=== PATIENT | male | born 1970 | race Caucasian/White ===

== ENCOUNTER 2018-12-25 12:02 | Emergency (ER) | payer OTHER ==
[~2018-12-25] VITALS: Ht 177.8 cm; Wt 104.3 kg
[2018-12-25 12:45] LABS: ABSOLUTE BASOPHILS 0.1 thou/uL (0.0-0.2); ABSOLUTE EOSINOPHILS 0.1 thou/uL (0.0-0.7); ABSOLUTE LYMPHOCYTES 2.9 thou/uL (0.8-5.3); ABSOLUTE MONOCYTES 0.8 thou/uL (0.0-1.2); ABSOLUTE NEUTROPHILS 6.2 thou/uL (1.6-8.1); BASOPHILS 1.2 %; EOSINOPHILS 1.5 %; HEMOGLOBIN 15.9 gm/dL (14.0-18.0); LYMPHOCYTES 28.6 %; MCH 32.9 pg (26.0-34.0); MCHC 34.6 g/dL (28.0-37.0); MCV 95.1 fL (80.0-100.0); MONOCYTES 7.4 %; MPV 8.8 fl. (7.2-11.1); NUCLEATED RBCS 0 /100WBC; PLATELET COUNT* 161 thou/uL (150-400); POLYS 61.3 %; RBC 4.83 mil/uL (4.50-6.00); RDW-CV 13.3 % (10.5-14.5); WBC 10.1 thou/uL (4.0-11.0)
[2018-12-25 12:57] LABS: CREATININE 1.2 mg/dL (0.6-1.3); POTASSIUM 4.1 mmol/L (3.5-5.1); TOTAL BILIRUBIN 0.3 mg/dL (<0.1-1.0); TOTAL PROTEIN 8.1 g/dL (6.4-8.2)
[2018-12-25] MEDS ORDERED: KEFLEX500 M1 PO (14:13)
[2018-12-25] MEDS ORDERED: IBUPROFEN 800800 M1 PO (14:13)
[2018-12-25] MEDS ORDERED: NORCO 5-325 TA1 EACH PO (14:13)
[2018-12-25 14:30] VITALS: BP 155/88
== END 2018-12-25 14:31 | disposition home or self-care (01) ==
LOC: M.ERS 12:02
PROVIDERS: Physician Assistant
DX: M25.572 Pain in left ankle and joints of left foot (principal); I10 Essential (primary) hypertension; M10.9 Gout, unspecified; F17.200 Nicotine dependence, unspecified, uncomplicated

== ENCOUNTER 2019-03-25 11:50 | Emergency (ER) | payer BC ==
[~2019-03-25] VITALS: Ht 177.8 cm; Wt 102.1 kg
[~2019-03-25 11:50] MED LIST: IBUPROFEN 800800 M1 PO; KEFLEX500 M1 PO; NORCO 5-325 TA1 EACH PO
[2019-03-25] MEDS ORDERED: CARAFATE 1 GM TA1 G1 PO (11:56)
[2019-03-25] MEDS ORDERED: LISINOPRIL10 MG PO (11:56)
[2019-03-25] MEDS ORDERED: LIPITOR 20 MG T20 M1 PO (11:57)
[2019-03-25] MEDS ORDERED: NAPROSYN500 MG PO (13:21)
[2019-03-25] MEDS ORDERED: FLEXERIL PO (13:21)
[2019-03-25 13:33] VITALS: BP 155/99
== END 2019-03-25 13:31 | disposition home or self-care (01) ==
LOC: M.ERS 11:50
DX: S39.012A Strain of muscle, fascia and tendon of lower back, initial encounter (principal); S29.012A Strain of muscle and tendon of back wall of thorax, initial encounter; F17.200 Nicotine dependence, unspecified, uncomplicated; I10 Essential (primary) hypertension; M10.9 Gout, unspecified; X50.1XXA Overexertion from prolonged static or awkward postures, initial encounter; Y92.89 Other specified places as the place of occurrence of the external cause; Y93.89 Activity, other specified; Y99.8 Other external cause status

== ENCOUNTER 2019-06-21 19:55 | Emergency (ER) | payer BC ==
[~2019-06-21] VITALS: Ht 177.8 cm; Wt 99.8 kg
[~2019-06-21 19:55] MED LIST changes: +CARAFATE 1 GM TA1 G1 PO; +FLEXERIL PO; +LIPITOR 20 MG T20 M1 PO; +LISINOPRIL10 MG PO; +NAPROSYN500 MG PO
[2019-06-21] MEDS ORDERED: NORCO 5-325 TA1 EAC1 PO (20:26)
[2019-06-21] MEDS ORDERED: INDOMETHACIN 5050 M1 PO (20:26)
[2019-06-21] MEDS ORDERED: PREDNISONE 10 M10 MG PO (20:26)
[2019-06-21 20:44] VITALS: BP 150/88
== END 2019-06-21 20:44 | disposition home or self-care (01) ==
LOC: M.ERS 19:55
DX: M10.062 Idiopathic gout, left knee (principal); I10 Essential (primary) hypertension; E78.5 Hyperlipidemia, unspecified

== ENCOUNTER 2019-09-03 07:03 | Emergency (ER) | payer OTHER ==
[~2019-09-03] VITALS: Ht 177.8 cm; Wt 90.7 kg
[~2019-09-03 07:03] MED LIST changes: +INDOMETHACIN 5050 M1 PO; +NORCO 5-325 TA1 EAC1 PO; +PREDNISONE 10 M10 MG PO
[2019-09-03] MEDS ORDERED: OXYCODONE HCL 55 MG PO (09:21)
[2019-09-03] MEDS ORDERED: IBUPROFEN 800800 M1 PO (09:21)
[2019-09-03 09:29] VITALS: BP 166/100
== END 2019-09-03 09:29 | disposition home or self-care (01) ==
LOC: M.ERS 07:03
DX: S22.42XA Multiple fractures of ribs, left side, initial encounter for closed fracture (principal); S00.83XA Contusion of other part of head, initial encounter; I10 Essential (primary) hypertension; E78.5 Hyperlipidemia, unspecified; M10.9 Gout, unspecified; W01.0XXA Fall on same level from slipping, tripping and stumbling without subsequent striking against object, initial encounter; Y93.89 Activity, other specified; Y92.89 Other specified places as the place of occurrence of the external cause; Y99.8 Other external cause status

== ENCOUNTER 2019-09-17 07:47 | Emergency (ER) | payer OTHER ==
[~2019-09-17] VITALS: Ht 177.8 cm; Wt 97.5 kg
[~2019-09-17 07:47] MED LIST changes: +OXYCODONE HCL 55 MG PO
[2019-09-17] MEDS ORDERED: NORCO 5-325 TA1 EAC1 PO (08:16)
[2019-09-17] MEDS ORDERED: FLEXERIL PO ×2 (08:16→08:18)
[2019-09-17] MEDS ORDERED: MEDROLDOSEPACK PO (08:18)
[2019-09-17 08:53] VITALS: BP 157/98
== END 2019-09-17 08:55 | disposition home or self-care (01) ==
LOC: M.ERS 07:47
DX: M62.830 Muscle spasm of back (principal); I10 Essential (primary) hypertension; E78.5 Hyperlipidemia, unspecified; M10.9 Gout, unspecified; F17.200 Nicotine dependence, unspecified, uncomplicated

== ENCOUNTER 2019-11-18 22:56 | Emergency (ER) | payer OTHER ==
[~2019-11-18] VITALS: Ht 180.3 cm; Wt 102.1 kg
[~2019-11-18 22:56] MED LIST changes: +MEDROLDOSEPACK PO
[2019-11-19] MEDS ORDERED: ACETAMINOPHEN-1 EAC2 PO (00:32)
[2019-11-19] MEDS ORDERED: MEDROLDOSEPACK PO (00:32)
[2019-11-19 00:51] VITALS: BP 133/84
== END 2019-11-19 00:52 | disposition home or self-care (01) ==
LOC: M.ERS 22:56
DX: M94.0 Chondrocostal junction syndrome [Tietze] (principal); I10 Essential (primary) hypertension; E78.5 Hyperlipidemia, unspecified; M10.9 Gout, unspecified; F17.210 Nicotine dependence, cigarettes, uncomplicated